=== PATIENT | female | born 2005 | race Caucasian/White ===

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

== ENCOUNTER → 2023-11-09 | Outpatient (CLI) | payer OTHER ==
--- NOTE | 2023-11-23 11:29 | MR ---
EXAMINATION TYPE: MR ankle RT wo con DATE OF EXAM: 11/09/2023 COMPARISON: Outside radiograph 08/06/2023 HISTORY: 18-year-old female M25.511 Right ankle pain and swelling since 2019 due to fall down [address] [facility] and sprained ankle TECHNIQUE: Multiplanar, multisequence images of the right were obtained without IV contrast. FINDINGS: There is mild increased signal along the Lisfranc ligament with intact fibers visualized. Consider a grade 1 sprain. There is a small 4 mm cyst at the plantar insertion of the peroneus longus at the base of the first m etatarsal possibly reflecting a tiny insertional tear. No acute or healing fracture is seen. The tibiotalar joint is intact but with a small to moderate eff usion which is nonspecific. Subtalar joint align also with a small effusion on the posterior recess. Preserved fatty signal in the sinus tarsi. Tarsal tunnel is clear. Achilles tendon and origin of the plantar fascia are both intact. The syndesmosis and anterior extensor tendons are intact. The ATFL, PTFL, and CFL as well as the lateral peroneal tendons are intact. Mild tenosynovial fluid along the inframalleolar posterior tibial tendon. The medial flexor tendons a nd deltoid spring ligament complex otherwise intact. IMPRESSION: 1. No acute or healing fracture is seen. 2. Nonspecific mild to moderate ankle joint effusion, possibly reactive to a recent injury. 3. Mild increased signal along the intact fibers of the Lisfranc ligament could reflect a grade 1 spr ain if any focal pain in this area. 4. Small 4 mm ganglion cyst at the plantar insertion of the peroneus longus at the base of the first metatarsal. A tiny insertional tear here is difficult to exclude. 5. No discrete ligamentous or other injury is identified.
== END | disposition home or self-care (01) ==
LOC: RADMRIMAIN 21:00
PROVIDERS: ATTEND Orthopaedic Surgery
DX: M67.471 Ganglion, right ankle and foot (principal); M25.471 Effusion, right ankle